=== PATIENT | female | born 1950 ===

== ENCOUNTER 2025-01-01 06:00 | Outpatient (CLI) | payer OTHER ==
[~2025-01-01] VITALS: Ht 152.4 cm; Wt 70.3 kg
[2025-01-01] MEDS ORDERED: PROTONIX IV40 MG IV (13:20)
[2025-01-01 13:21] VITALS: BP 119/77
[2025-01-01 14:07] VITALS: BP 119/77
[2025-01-01 14:12] LABS: INR 0.97; PARTIAL THROMBOPLASTIN TIME 27.6 SECONDS (22.0-34.0); PROTHROMBIN TIME 10.6 SECONDS (9.0-11.5)
[2025-01-01 14:19] LABS: ALBUMIN 3.5 gm/dL (3.4-5.0); BILIRUBIN TOTAL 0.55 mg/dL (0.3-1.2); CALCIUM 9.5 mg/dL (8.5-10.1); CREATININE SERUM 0.76 mg/dL (0.55-1.02); GFR 73.99; GLOBULINA 4.1 G/DL (2.4-3.5); POTASSIUM 4.06 mEq/L (3.5-5.1); TOTAL PROTEIN 7.6 gm/dL (6.4-8.2)
== END 2025-01-01 06:01 | disposition home or self-care (01) ==
LOC: RAD 06:00 → SURH 01-04 09:50 → EDSTATUS 01-04 12:00
PROVIDERS: ATTEND Surgery
DX: D34 Benign neoplasm of thyroid gland (principal); D65 Disseminated intravascular coagulation [defibrination syndrome]; I10 Essential (primary) hypertension